=== PATIENT | female | born 1965 | race Caucasian/White ===

== ENCOUNTER 2018-03-28 16:46 | Emergency (ER) | payer SELFPAY ==
[~2018-03-28] VITALS: Ht 162.6 cm; Wt 68.0 kg
[2018-03-28] MEDS ORDERED: DEXAMETHASONE 10 MG/ML (DECADRON) 1 ML VIAL IM ONE (17:30)
[2018-03-28] MEDS ORDERED: diphenhydrAMINE 50 MG/ML INJ (BENADRYL) IM ONE (17:30)
[2018-03-28] MEDS ORDERED: DOXY100T19 PO (17:31)
--- NOTE | 2018-03-28 17:32 | ED Integumentary General ---
General Chief Complaint: Skin/Wound Problems Stated Complaint: SPIDER BITE Nursing Triage Note: PT STATES SHE HAS AN ABCESS OR POSSIBLE SPIDER BITE ON HER R HIP. JUST NOTICED IT THIS AFTERNOON AROUND 1500 Source: patient Exam Limitations: no limitations History of Present Illness Date Seen by Provider: Mar 28, 2018 Time Seen by Provider: 17:26 Initial Comments to ER with a possible spider bite to the right flank first noticed about 4 hours ago while at work. She reports chills but no measured fever. No shortness of breath but she does have some trouble swallowing she feels. No wheezing. No nausea or vomiting. No joint pain. No rash.she did not actually see or feel anything bite her. Timing/Duration: this afternoon Severity: mild Location: torso Associated Symptoms: No petechiae, No rash; other (chills) Allergies and Home Medications Allergies Coded Allergies: Sulfa (Sulfonamide Antibiotics) (Verified Allergy, Unknown, 07/16/17) Home Medications No Active Prescriptions or Reported Meds Patient Home Medication List Home Medication List Reviewed: Yes Constitutional: see HPI, chills; No fever, No malaise, No weakness EENTM: see HPI Respiratory: see HPI; No cough, No dyspnea on exertion, No short of breath, No wheezing Cardiovascular: no symptoms reported Genitourinary: no symptoms reported Musculoskeletal: no symptoms reported Skin: see HPI Psychiatric/Neurological: No Symptoms Reported Endocrine: No Symptoms Reported Past Krzkcns-Nvvvjk-Vycfzr Hx Patient Social History Alcohol Use: Denies Use Recreational Drug Use: No Smoking Status: Current Everyday Smoker Type Used: Cigarettes Recent Foreign Travel: No Contact w/Someone Who Travel: No Recent Infectious Disease Expo: No Recent Hopitalizations: No Physical Abuse: No Sexual Abuse: No Fear: No Seasonal Allergies Seasonal Allergies: No Past Medical History Surgeries: Yes Hysterectomy, Tubal Ligation Respiratory: No Cardiac: No Neurological: No Genitourinary: No Gastrointestinal: No Musculoskeletal: No Endocrine: Yes (hypoglycemia) HEENT: No Cancer: No Psychosocial: No Nursing Suicide Risk Score: 0 Integumentary: No Blood Disorders: No Physical Exam Vital Signs Vital Signs - First Documented 03/28/18 16:55 Temp 97.3 Pulse 84 Resp 18 B/P (MAP) 140/80 (100) Capillary Refill : Less Than 3 Seconds General Appearance: WD/WN, no apparent distress HEENT: PERRL/EOMI, normal ENT inspection Neck: non-tender, full range of motion Cardiovascular: regular rate, rhythm, no murmur Respiratory: chest non-tender, no respiratory distress, no accessory muscle use Gastrointestinal: normal bowel sounds, non tender, soft Neurologic/Psychiatric: alert, normal mood/affect, oriented x 3 Skin: normal color, warm/dry Skin Problem Location: generalized Skin Problem Character: other (10 cm area of erythema well demarcated to the right flank. There is a central areaabout 1-2 cm in diameter with more intense erythema and a bit ofinduration centrally. No pustule. No petechiae. No eschar or necrosis. No fluctuance. No lymphangitis.) Progress/Results/Core Measures Results/Orders My Orders Orders - FLYNN TROY APRN Diphenhydramine Injection (Benadryl Inje (03/28/18 17:30) Dexamethasone Injection (Decadron Inject (03/28/18 17:30) Vital Signs/I&O 03/28/18 16:55 Temp 97.3 Pulse 84 Resp 18 B/P (MAP) 140/80 (100) Blood Pressure Mean: 100 Departure Communication (Admissions) differential remains broad and would include brown recluse bite, other insect bite with localized allergic reaction, soft tissue infection. Impression Primary Impression: Insect bite Disposition: 01 HOME, SELF-CARE Condition: Stable Departure-Patient Inst. Decision time for Depature: 17:29 Referrals: NO,LOCAL PHYSICIAN (PCP/Family) Primary Care Physician Patient Instructions: Wound Care (DC) Add. Discharge Instructions: 1. It's difficult to determine what the cause of this is. This may be an insect bite with localized allergic reaction, this may be a brown recluse bite and this may also be a bacterial infection of the skin. Apply cool compresses for 30 minutes to an hour at a time for the next 2-3 days, Benadryl as needed for any itching that may develop, take antibiotics as directed. Return to ER for any worsening and follow-up with your doctor within 3 days for recheck.All discharge instructions reviewed with patient and/or family. Voiced understanding. Scripts Doxycycline Monohydrate (Doxycycline Monohydrate) 100 Mg Tablet 100 MG PO BID, #14 TAB Prov: FLYNN TROY APRN 03/28/18 Work/School Note: Local [employer] Listing FLYNN TROY APRN Mar 28, 2018 17:32
[2018-03-28 17:58] VITALS: BP 140/80
== END 2018-03-28 17:58 | disposition home or self-care (01) ==
LOC: EDUNIT# 16:46 → ER 16:48
DX: S70.261A Insect bite (nonvenomous), right hip, initial encounter (principal); F17.210 Nicotine dependence, cigarettes, uncomplicated; Z88.2 Allergy status to sulfonamides; Z90.710 Acquired absence of both cervix and uterus; Z98.51 Tubal ligation status; W57.XXXA Bitten or stung by nonvenomous insect and other nonvenomous arthropods, initial encounter
CPT/HCPCS: 96372; 99284